=== PATIENT | female | born 1995 | race Hispanic/Latino ===

== ENCOUNTER 2019-10-07 11:55 | Emergency (ER) | payer MEDICARE ==
[~2019-10-07] VITALS: Ht 160 cm; Wt 63.5 kg
--- OUTSIDE RECORDS SUMMARY | 2019-10-07 11:58 | XMS REPORT ---
Author Author [facility] Organization [facility] Address Unknown Phone Unavailable Care Team Providers Care Senior Recruitment Consultant Name Role Phone Unavailable Unavailable Payers Payer Name Policy Type Policy Number Effective Date Expiration D ate Problems This patient has no known problems. Allergies, Adverse Reactions, Alerts Allergy Name Allergy Type Status Severity Reaction(s) Onset Date Inacti ve Date Treating Clinician Comments tramadol DA Active [place] 2018-08-21 00:00:00 tramadol DA Active [place] 2014-05-08 00:00:00 Medications This patient has no known medications. Encounters Start Date/Time End Date/Time [facility] ID 2019-04-05 16:38:00 Inpatient [facility]SE [facility]SE [id number] 2019-03-04 14:26:00 2019-03-04 14:26:00 Emergency E MHSE MHSE [id number] 2019-01-29 14:35:00 2019-01-29 14:35:00 Emergency E MHSE MHSE [id number] 2018-11-30 17:47:00 2018-11-30 17:47:00 Emergency E MHSE MHSE [id number] Results Test Description Test Time Test Comments Text Results Atomic Results Result Comments - XR CHEST 2 V 2018-08-21 12:41:00 FAX: Billy Elkins MD [phone] [place]: St: PRE FAX: Winifred Holt NP Name: ANDRES CAMPOS [facility] : 1995 Age/S: 22/F [address] [place] [address] Unit #: [id number] Loc: [place]IN[place] Jaquez [address] Phys: Winifred Holt COMMUNITY AFFAIRS DIRECTOR Acct: [id number] Dis Date: Status: PRE ER PHONE #: [phone] Exam Date: 08/21/2018 1230 FAX #: [phone] Reason: cough EXAMS: CPT CODE: [id number] XR CHEST 2 V [id number] EXAM: PA and lateral chest. EXAM DATE: August 21, 2018 CLINICAL HISTORY: Cough COMPARISON: None Cardiomediastinal silhouette is within normal limits. The lungs appear free of acute disease. Osseous structures are within normal limits. IMPRESSION: No evidence of acute cardiopulmonary disease. at 1241 Reported and signed by: Joan Tuttle M.D. CC: Billy Betts; Winifred Holt NP Technologist: NIRANJAN Dempsey RT(R) Trnscrd Date/Time/By: 08/21/2018 ([id number]) : By: Tiarra PAGE 1 Signed Report COMPREHENSIVE METABOLIC PANEL 2018-08-21 12:39:00 SODIUM (test code = NA) 133 mEq/L 134-147 POTASSIUM (test code = K) 3.5 mEq/L 3.4-5.0 CHLORIDE (test code = CL) 102 mEq/L 100-108 CARBON DIOXIDE (test code = CO2) 24 mEq/L 21-33 ANION GAP (test code = GAP) 11 0-20 GLUCOSE (test code = GLU) 84 mg/dL 70-110 BLOOD UREA NITROGEN (test code = BUN) 5 mg/dL 7-18 GLOMERULAR FILTRATION RATE (test code = GFR) 157.3 110 -120 Units of measure = ml/min/1.73 m2 CREATININE (test code = CREAT) 0.5 mg/dL 0.6-1.3 TOTAL PROTEIN (test code = PROT) 8.0 g/dL 6.4-8.2 ALBUMIN (test code = ALB) 3.90 g/dL 3.4-5.0 CALCIUM (test code = CA) 8.9 mg/dL 8.0-10.5 BILIRUBIN TOTAL (test code = BILT) 0.70 mg/dL 0.0-1.0 SGOT/AST (test code = AST) 8 IUnit/L 15-37 SGPT/ALT (test code = ALT) 14 IUnit/L 15-65 ALKALINE PHOSPHATASE TOTAL (test code = ALKP) 84 IUnit/L 20 -125 Is patient ? YHOW MANY WEEKS? 6 [id number] 12:39:00* Test Item Value Reference Range Comments LIPASE (test code = LIP) 105 IUnit/L 73-393 Is patient ? YHOW MANY WEEKS? 6 WEEKSHCG [id number] 12:39:00* Test Item Value Reference Range Comments HCG SERUM (test code = HCG) 02290 0 - 6 NOT > 6 SUGGESTIVE OF EARLY RISES TWO FOLD EVERY 2 DAYS; SUGGEST RE CONFIRMING AFTER 2 DAYS. 150,000-200,[address] TRIMESTER 10,000 - 50,000 2ND & 3RD TRIMESTERResults in elidia-International Units/mL Is patient ? YHOW MANY WEEKS? 6 WEEKSCOMPREHENSIVE METABOLIC PANEL 2018-08-21 12:21:00* Test Item Value Reference Range Comments SODIUM (test code = NA) 133 mEq/L 134-147 POTASSIUM (test code = K) 3.5 mEq/L 3.4-5.0 CHLORIDE (test code = CL) 102 mEq/L 100-108 CARBON DIOXIDE (test code = CO2) 24 mEq/L 21-33 ANION GAP (test code = GAP) 11 0-20 GLUCOSE (test code = GLU) 84 mg/dL 70-110 BLOOD UREA NITROGEN (test code = BUN) 5 mg/dL 7-18 GLOMERULAR FILTRATION RATE (test code = GFR) 157.3 110 -120 Units of measure = ml/min/1.73 m2 CREATININE (test code = CREAT) 0.5 mg/dL 0.6-1.3 TOTAL PROTEIN (test code = PROT) g/dL 6.4-8.2 ALBUMIN (test code = ALB) 3.90 g/dL 3.4-5.0 CALCIUM (test code = CA) 8.9 mg/dL 8.0-10.5 BILIRUBIN TOTAL (test code = BILT) mg/dL 0.0-1.0 SGOT/AST (test code = AST) 8 IUnit/L 15-37 SGPT/ALT (test code = ALT) 14 IUnit/L 15-65 ALKALINE PHOSPHATASE TOTAL (test code = ALKP) IUnit/L 20 -125 Is patient ? YHOW MANY WEEKS? 6 [id number] 12:21:00* Test Item Value Reference Range Comments LIPASE (test code = LIP) 105 IUnit/L 73-393 Is patient ? YHOW MANY WEEKS? 6 WEEKSHCG [id number] 12:21:00* Test Item Value Reference Range Comments HCG SERUM (test code = HCG) Is patient ? YHOW MANY WEEKS? 6 WEEKSURINALYSIS [id number] 12:16:00* Test Item Value Reference Range Comments UA COLOR (test code = COLU) YELLOW YEL/STRAW UA APPEARANCE (test code = APPU) SL CLOUDY CLEAR UA GLUCOSE DIPSTICK (test code = DGLUU) NEGATIVE NEGATIVE UA BILIRUBIN DIPSTICK (test code = BILU) NEGATIVE NEGATIV E UA KETONE DIPSTICK (test code = KETU) 2+ NEGATIVE UA SPECIFIC GRAVITY (test code = SGU) 1.013 1.005-1.03 0 UA BLOOD DIPSTICK (test code = ANJELICA) 1+ NEGATIVE UA PH DIPSTICK (test code = KATELIN) 6.0 5.0-7.0 UA PROTEIN DIPSTICK (test code = PROU) NEGATIVE NEGATIVE UA UROBILINIOGEN DIPSTICK (test code = URO) 0.2 mg/dL 0.2- 1.0 UA NITRITE DIPSTICK (test code = KENNY) NEGATIVE NEGATIVE UA LEUKOCYTE ESTERASE DIPSTICK (test code = LEUU) TRACE NEGATIVE UA WBC (test code = WBCU) 4-9 WBC/HPF 0-3 UA RBC (test code = RBCU) 4-10 RBC/HPF 0-3 UA BACTERIA (test code = BACU) TRACE /HPF NONE SEEN UA SQUAMOUS CELLS (test code = SQU) 6-10 /HPF NONE SEEN UA MUCUS (test code = MUCU) 4+ /LPF NONE SEEN CBC W/AUTO [id number] 12:15:00* Test Item Value Reference Range Comments WHITE BLOOD CELL (test code = WBC) 7.09 x10 3/uL 4.5-11.0 RED BLOOD CELL (test code = RBC) 4.38 x10 6/uL 3.54-5.02 HEMOGLOBIN (test code = HGB) 13.3 g/dL 11.0-15.0 HEMATOCRIT (test code = HCT) 39.0 % 33.0-45.0 MEAN CELL VOLUME (test code = MCV) 89.0 fL 81.0-99.0 MEAN CELL HGB (test code = MCH) 30.4 pg 27.0-33.0 MEAN CELL HGB CONCETRATION (test code = MCHC) 34.1 g/dL 33 .0-37.0 RED CELL DISTRIBUTION WIDTH CV (test code = RDW) 11.9 % 11.5-14.5 RED CELL DISTRIBUTION WIDTH SD (test code = RDW-SD) 38.8 fL 37.0-54.0 PLATELET COUNT (test code = PLT) 273 x10 3/uL 150-400 MEAN PLATELET VOLUME (test code = MPV) 10.0 fL 7.0-9.0 NEUTROPHIL % (test code = NT%) 73.7 % 56.0-77.0 IMMATURE GRANULOCYTE % (test code = IG%) 0.7 % 0.0-2.0 LYMPHOCYTE % (test code = LY%) 10.4 % 14.0-32.0 MONOCYTE % (test code = MO%) 11.8 % 4.8-9.0 EOSINOPHIL % (test code = EO%) 2.4 % 0.3-3.7 BASOPHIL % (test code = BA%) 1.0 % 0.0-2.0 NUCLEATED RBC % (test code = NRBC%) 0.0 % 0-0 NEUTROPHIL # (test code = NT#) 5.22 x10 3/uL 2.0-7.6 IMMATURE GRANULOCYTE # (test code = IG#) 0.05 x10 3/uL 0.00-0. 03 LYMPHOCYTE # (test code = LY#) 0.74 x10 3/uL 1.0-3.8 MONOCYTE # (test code = MO#) 0.84 x10 3/uL 0.1-0.8 EOSINOPHIL # (test code = EO#) 0.17 x10 3/uL 0.0-0.2 BASOPHIL # (test code = BA#) 0.07 x10 3/uL 0.0-0.2 NUCLEATED RBC # (test code = NRBC#) 0.00 x10 3/uL 0.0-0.1 MANUAL DIFF REQUIRED (test code = MDIFF) NO
[2019-10-07] MEDS ORDERED: SODIUM CHLORIDE 0.9% 1000ML 1,000 ML IV STA (12:43)
[2019-10-07] MEDS ORDERED: ONDANSETRON HCL INJ 2MG/ML 2ML 2 MG/ML VIAL IV NR (12:45)
[2019-10-07 13:37] LABS: BASOPHILS # (AUTO) 0.1 (0.0-0.1); BASOPHILS % 0.5 % (0.0-1.0); EOSINOPHILS # (AUTO) 0.1 (0.0-0.4); EOSINOPHILS % 0.6 % (0.0-6.0); HEMATOCRIT 39.1 % (34.2-44.1); HEMOGLOBIN 13.3 g/dL (12.0-16.0); LYMPHOCYTES # (AUTO) 2.3 (1.0-3.2); LYMPHOCYTES % 23.8 % (18.0-39.1); MEAN CORPUSCULAR HEMOGLOBIN 28.9 pg (28-32); MEAN CORPUSCULAR VOLUME 84.8 fL (81-99); MONOCYTES # (AUTO) 0.8 (0.2-0.8); MONOCYTES % 8.5 % (4.4-11.3); NEUTROPHILS # (AUTO) 6.5 (2.1-6.9); NEUTROPHILS % 65.8 % (38.7-80.0); PLATELET COUNT 317 x10e3/uL (140-360); RED BLOOD COUNT 4.61 x10e6/uL (3.6-5.1); RED CELL DISTRIBUTION WIDTH 14.2 % (11.7-14.4)
[2019-10-07 13:41] LABS: BILIRUBIN,URINE SMALL (NEGATIVE); CLARITY,URINE HAZY (CLEAR); COLOR,URINE YELLOW (YELLOW); KETONES,URINE 3+ (NEGATIVE); LEUKOCYTE ESTERASE ,URINE SMALL (NEGATIVE); NITRITE,URINE NEGATIVE (NEGATIVE); PROTEIN,URINE DIPSTICK 2+ (NEGATIVE); URINE UROBILINOGEN 1 mg/dL (0.2 - 1)
[2019-10-07 13:49] LABS: BACTERIA,URINE FEW /HPF; EPITHELIAL CELLS,URINE MODERATE /LPF; MUCUS,URINE MODERATE (RARE); RBC,URINE 0-5 /HPF (0-5)
[2019-10-07 13:55] LABS: ALANINE AMINOTRANSFERASE 11 IU/L (0-55); ALBUMIN 4.3 g/dL (3.5-5.0); ALBUMIN/GLOBULIN RATIO 1.2 (0.8-2.0); ALKALINE PHOSPHATASE 95 IU/L (40-150); ANION GAP 14.8 mmol/L (8-16); BLOOD UREA NITROGEN 8 mg/dL (7-26); BUN/CREATININE RATIO 11 (6-25); CALCIUM 9.9 mg/dL (8.4-10.2); CARBON DIOXIDE 23 mmol/L (22-29); CHLORIDE 105 mmol/L (98-107); CREATININE, SERUM 0.71 mg/dL (0.57-1.11); EST GLOMERULAR FILTRATION RATE > 60 ML/MIN (60-); GLUCOSE 87 mg/dL (74-118); POTASSIUM 3.8 mmol/L (3.5-5.1); SODIUM 139 mmol/L (136-145)
[2019-10-07] MEDS ORDERED: CEFTRIAXONE SOD 1 GM VIAL IV NR (14:00)
[2019-10-07] MEDS ORDERED: SODIUM CHLORIDE 0.9% 50ML 50 ML ONE (14:17)
[2019-10-07 14:39] LABS: HCG,QUANTITATIVE 63755.22 mIU/mL (0-10)
--- NOTE | 2019-10-07 17:11 | Diagnostic Imaging Report ---
Perfusion Lung Scan NOTE: Lung ventilation studies with xenon are not being performed per the recommendation of the Society of Nuclear Medicine and Molecular Imaging. It is not possible to be certain that the ventilation system is adequately disinfected. Ventilation studies with Tc-99m DTPA particles is contraindicated because the delivery by nebulization generates too many water droplets from the patient's airway. Clinical Information: 24 F with acute onset SOB 2 days ago that has persisted and worsened. It was determined at admit to ER that she is ; she reports she must be very recently . Comparison: Chest radiograph 09/09/2019 Discussion: Ventilation images were not obtained. In addition to the note above, ventilation images are not performed in women in order to reduce radiation exposure. Perfusion images are performed with a lower dose of the radiopharmaceutical and slightly longer imaging times. Perfusion images of the lungs were obtained in multiple projections following intravenous administration of approximately 1.8 mCi of Tc-99m MAA. Distribution of tracer is appears physiologic throughout the lungs. There are no segmental perfusion defects of any size and the contours of the lungs are well demarcated. The cardiomediastinal silhouette is unremarkable. Impression: 1. Scan findings represent a VERY LOW probability for acute pulmonary embolic disease based on the PIOPED II criteria. 2. This probability would not be different if ventilation images were performed. Signed by: Dr. Mine Dodd M.D. on 10/07/2019 5:08 PM
[2019-10-07] MEDS ORDERED: PROMETHAZINE 12.5MG/ NACL 0.9% 12.5 MG/50 ML BAG IV ONE (17:15)
[2019-10-07 17:40] VITALS: BP 120/78
== END 2019-10-07 17:51 | disposition home or self-care (01) ==
LOC: ER 11:55
DX: O26.91 Pregnancy related conditions, unspecified, first trimester (principal); R06.09 Other forms of dyspnea; O23.41 Unspecified infection of urinary tract in pregnancy, first trimester
CPT/HCPCS: 36415; 78597; 80053; 81001; 84702; 85025; 87086; 99284; A9540; J0696; J2405; J2550; J7030

== ENCOUNTER 2025-03-22 11:55 | Emergency (ER) | payer SELFPAY ==
[~2025-03-22] VITALS: Ht 160 cm; Wt 72.6 kg
[2025-03-22] MEDS ORDERED: TRAMADOL HCL 50 MG TAB PO ONE (12:30)
[2025-03-22] MEDS ORDERED: NAPROXEN375 MG PO (12:44)
[2025-03-22] MEDS: KETOROLAC TROMETHAMINE 30 MG/ML VIAL IM STA (12:55)
[2025-03-22 13:09] VITALS: PULSE 80; RESP 16; TEMP 98.4; O2SAT 95
== END 2025-03-22 13:11 | disposition home or self-care (01) ==
LOC: ER 12:09
DX: S93.492A Sprain of other ligament of left ankle, initial encounter (principal); X50.1XXA Overexertion from prolonged static or awkward postures, initial encounter; Y93.01 Activity, walking, marching and hiking; Y92.89 Other specified places as the place of occurrence of the external cause
CPT/HCPCS: 73610; 99283; J1885